=== PATIENT | male | born 2000 ===

== ENCOUNTER 2021-12-11 13:44 | Emergency (ER) | payer SELFPAY ==
[2021-12-11] MEDS ORDERED: IBUPROFEN600 MG PO (14:38)
== END 2021-12-11 15:15 | disposition home or self-care (01) ==
LOC: ER1 13:44
DX: M79.671 Pain in right foot (principal); W04.XXXA Fall while being carried or supported by other persons, initial encounter; Y99.0 Civilian activity done for income or pay
CPT/HCPCS: 73630; 99283